=== PATIENT | female | born 2000 | race African-American/Black ===

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

== ENCOUNTER 2021-04-08 10:38 | Emergency (ER) | payer OTHER ==
[~2021-04-08] VITALS: Ht 185.4 cm; Wt 159.0 kg
[~2021-04-08 10:38] MED LIST changes: +CYCL10TA19 PO; +NAPR-514 PO
[2021-04-08 13:48] VITALS: BP 157/74
--- NOTE | 2021-04-08 13:48 | PHYS DOC ---
Past Medical History Past Medical History: No Pertinent History Additional Past Medical Histor: irregular menstrual cycyles Past Surgical History: No Surgical History Additional Past Surgical Histo: adenoidectomy Smoking Status: Never Smoker Alcohol Use: None Drug Use: None General Adult EDM: Chief Complaint: FLU SYMPTOM HPI: HPI: Patient is a 20 year [id number] female presenting via EMS for upper respiratory symptoms. Reports onset was 3 days ago without any obvious inciting event, trauma, ingestion, sick contact or recent travel. Reports she took Claritin D yesterday evening and this morning had worsening symptoms and appeared more groggy than usual prompting her to call EMS. Denies any fever, admits ongoing itchy eyes, tearing, nasal congestion, rhinorrhea, postnasal drip and a dry nonproductive cough. She is morbidly obese but denies any obvious diagnosed medical conditions and takes no other medications on a daily basis. Again, no fever, chills, syncope, chest pain, ripping or tearing in torso, shortness of breath, abdominal pain, urinary symptoms, changes in motor or sensory or neuro function. She is unvaccinated against COVID-19 Review of Systems: Review of Systems: Fourteen body systems of review of systems have been reviewed. See HPI for pertinent positives and negative responses, other samuel all other systems are negative, non-pertinent or non-contributory Heart Score: C/O Chest Pain: No Risk Factors: Risk Factors: DM, Current or recent (<one month) smoker, HTN, HLP, family history of CAD, obesity. Risk Scores: Score 0 - 3: 2.5% MACE over next 6 weeks - Discharge Home Score 4 - 6: 20.3% MACE over next 6 weeks - Admit for Clinical Observation Score 7 - 10: 72.7% MACE over next 6 weeks - Early Invasive Strategies Allergies: Allergies: Allergies Coded Allergies Type Severity Reaction Last Updated Verified No Known Drug Allergies 04/08/21 No Physical Exam: PE: General: Appears well, morbidly obese, non toxic, and comfortable Skin: Warm, dry. Normal for ethnicity. HEENT: Atraumatic. PERRLA. Rhinorrhea and congestion. Nasal turbinates boggy b/l. Moist mucous membranes. Uvula midline. Maintaining secretions. No phonation changes. Neck: Trachea midline. Normal ROM. No stridor. Respiratory: Normal WOB. CTAB w/o w/r/r. No tachypnea. Cardiovascular: Regular rate and rhythm. Normal peripheral perfusion. Abdomen: Soft and protuberant. Non tender. No distension. Back: Normal ROM. Musculoskeletal: No swelling or deformity. Neuro: Alert and oriented x 4. MAEE. Lymph: No cervical LAD. Psych: Normal affect and mood. Current Patient Data: Labs: Laboratory Tests Test 04/08/21 11:37 04/08/21 12:45 Glucose (Fingerstick) 76 mg/dL (70-99) 100 mg/dL (70-99) H Vital Signs: Vital Signs Date Time Temp Pulse Resp B/P (MAP) Pulse Ox O2 Delivery O2 Flow Rate FiO2 04/08/21 11:39 98 25 161/67 (98) 100 Room Air 04/08/21 10:38 98.3 98.3 EKG: EKG: [] Radiology/Procedures: Radiology/Procedures: [] Course & Med Decision Making: Course & Med Decision Making ABCs unremarkable HPI and physical exam nonconcerning for any emergent or surgical issues. Decision to test for influenza and Covid made given patient's URI symptoms and unvaccinated status Notified by nurse that patient wishes to leave against medical advice. Had an extensive discussion with the patient regarding the risks of leaving AMA including but not limited to , permanent disability, and worsening condition. Pt acknowledged the risks and agreed to take full responsibility. Pt was A&Ox4 and had full medical decision making capacity when they signed the AMA sheet. She was upset with weight time, I advised her that she was here for nonemergency symptoms and I was busy handling emergent cases but had not forgotten about her Risks and Recommendations: The risks of refusing recommended care that were disclosed and acknowledged by the patient include loss of current lifestyle, permanent mental impairment, and . The recommended medical care being refused has been discussed with the patient and is to stay for continued monitoring, workup, and possible treatment. Discharge Care: The patient understands they are welcome to return to the hospital at any time to receive the recommended care or any other care at any time, regardless of their ability to pay for such care. Discharge instructions were provided to the patient. Dragon Disclaimer: Dragon Disclaimer: This electronic medical record was generated, in whole or in part, using a voice recognition dictation system. Departure Departure Impression: Primary Impression: Viral syndrome Additional Impression: Person under investigation for COVID-19 Disposition: 07 LEFT AGAINST MEDICAL ADVICE Condition: STABLE Referrals: CARLA NEFF (PCP) ANDREW DELUCA DO Apr 08, 2021 13:48
[2021-04-08 13:50] LABS: INFLUENZA A PATIENT NEGATIVE (NEGATIVE); INFLUENZA B PATIENT NEGATIVE (NEGATIVE)
--- NOTE | 2021-04-09 16:36 | NUR ---
IP: Informed pt of negative covid test. Pt verbalized understanding.
== END 2021-04-08 13:55 | disposition left against medical advice (07) ==
LOC: ER 10:38
DX: B34.9 Viral infection, unspecified (principal); Z20.822 Contact with and (suspected) exposure to COVID-19
CPT/HCPCS: 82962; 87804; 99283; U0003; U0005